=== PATIENT | female | born 1955 | race Caucasian/White ===

== ENCOUNTER → 2019-10-09 | Outpatient (CLI) | payer OTHER ==
[~2019-10-09] MED LIST: GLAUCOMA MED; THYROID MED
[2019-10-09 10:21] LABS: BASOPHILS ABSOLUTE AUTO 0.07 K/mm3 (0.00-0.23); BASOPHILS PERCENT AUTO 1 % (0-2); EOSINOPHILS ABSOLUTE AUTO 0.26 K/mm3 (0.00-0.68); EOSINOPHILS PERCENT AUTO 3 % (0-6); Hematocrit 40.9 % (33.0-51.0); Hemoglobin 13.8 g/dL (11.5-16.0); IMMATURE GRAN ABSOLUTE AUTO 0.04 K/mm3 (0.00-0.10); IMMATURE GRAN PERCENT AUTO 1 % (0-1); LYMPHOCYTES ABSOLUTE AUTO 2.43 K/mm3 (0.84-5.20); LYMPHOCYTES PERCENT AUTO 31 % (21-46); MONOCYTES ABSOLUTE AUTO 0.55 K/mm3 (0.16-1.47); MONOCYTES PERCENT AUTO 7 % (4-13); Mean Corpuscular HGB 30.9 pg (26.0-34.0); Mean Corpuscular HGB Conc 33.7 g/dL (31.5-36.5); Mean Corpuscular Volume 92 fL (80-100); Mean Platelet Volume 9.6 fL (9.1-12.4); NEUTROPHILS ABSOLUTE AUTO 4.61 K/mm3 (1.96-9.15); NEUTROPHILS PERCENT AUTO 58 % (41-73); Platelet Count 290 K/mm3 (150-400); RDW Coefficient Variation 13.1 % (11.7-14.2); RDW Standard Deviation 44.1 fL (35.1-46.3); Red Blood Cell Count 4.46 M/mm3 (3.80-5.20); White Blood Cell Count 7.96 K/mm3 (4.00-11.30)
[2019-10-09 10:47] LABS: Alanine Aminotransfer (ALT/SGP 31 U/L (12-78); Albumin, Blood 4.1 g/dL (3.4-5.0); Albumin/Globulin Ratio 1.2 (0.8-1.8); Alk Phos 113 U/L (40-126); Anion Gap 11 mmol/L (6-16); Aspartate Aminotrans (AST/SGOT 22 U/L (12-37); Bilirubin, Total 0.3 mg/dL (0.1-1.0); Blood Urea Nitrogen 13 mg/dL (8-24); Bun/Creatinine Ratio 13.3 (12.0-20.0); CO2, Blood 26 mmol/L (21-32); Calcium, Blood 8.2 mg/dL (8.5-10.1); Chloride, Blood 107 mmol/L (98-108); Creatinine, Blood 0.98 mg/dL (0.40-1.00); Globulin, Blood 3.3 g/dL (2.2-4.0); Glomerular Filtration Rate 57 (60-); Glucose, Blood 110 mg/dL (70-99); Sodium, Blood 144 mmol/L (136-145); Thyroid Stimulating Hormone 1.806 uIU/mL (0.360-4.800); Total Protein, Blood 7.4 g/dL (6.4-8.2)
[2019-10-09 10:48] LABS: Troponin I <0.017 ng/mL (0.000-0.040)
== END | disposition home or self-care (01) ==
PROVIDERS: Physician Assistant
DX: R06.09 Other forms of dyspnea (principal); R07.89 Other chest pain; E03.9 Hypothyroidism, unspecified; J40 Bronchitis, not specified as acute or chronic

== ENCOUNTER 2020-03-27 10:19 | Emergency (ER) | payer OTHER ==
[~2020-03-27] VITALS: Ht 160 cm; Wt 95.2 kg
== END 2020-03-27 15:45 | disposition home or self-care (01) ==
LOC: ER 10:19
DX: R05 Cough (principal); H91.92 Unspecified hearing loss, left ear
CPT/HCPCS: 99282

== ENCOUNTER 2022-03-18 07:12 | Day surgery (SDC) | payer OTHER ==
[~2022-03-18] VITALS: Ht 160 cm; Wt 76.7 kg
--- NOTE | 2022-03-18 07:25 | NUR ---
Ambulatory in Day Surgery History, Chart, Medications and Allergies reviewed before start of procedure.Patient confirms NPO status and agrees with scheduled surgery. Pre-Op teaching done. Pt verbalizes understanding. Patient States Post-Procedure ride home has been arranged.
[2022-03-18] MEDS ORDERED: ALBU90OI INH (07:38)
[2022-03-18] MEDS ORDERED: Prinivil10 MG PO (07:39)
[2022-03-18] MEDS ORDERED: TIZA4 PO (07:39)
[2022-03-18] MEDS ORDERED: LATA.005SO BOTHEYES (07:40)
[2022-03-18] MEDS ORDERED: ACYC400 PO (07:40)
[2022-03-18] MEDS ORDERED: ATOR10 PO (07:40)
[2022-03-18] MEDS ORDERED: MELO7.5 PO (07:40)
[2022-03-18] MEDS ORDERED: BUSP10 PO (07:41)
[2022-03-18] MEDS ORDERED: SERT100 PO (07:42)
[2022-03-18] MEDS ORDERED: EUTHYROX50 MCG PO (07:44)
[2022-03-18] MEDS ORDERED: METO25ER PO (07:49)
[2022-03-18] MEDS ORDERED: TRAZ150T57 PO (07:50)
[2022-03-18] MEDS ORDERED: OMEP20ER PO (07:50)
--- NOTE | 2022-03-18 08:07 | NUR ---
03/18/22 0807 Nina Byers HISTORY, CHART, MEDICATIONS AND ALLERGIES REVIEWED BEFORE START OF PROCEDURE. PATIENT CONFIRMS NPO STATUS AND AGREES WITH SCHEDULED PROCEDURE. 3-LEAD EKG REVIEWED WITH PHYSICIAN PRIOR TO START OF PROCEDURE. MONITOR INTACT WITH CONTINUOUS PULSE OXIMETRY,CAPNOGRAPHY, 3-LEAD EKG, INTERMITTENT BP. SUPPLEMENTAL O2 TO BE TITRATED THROUGHOUT PROCEDURE TO MAINTAIN O2 SATURATION ABOVE 90%. PATIENT DETERMINED TO BE ASA APPROPRIATE FOR PROPOFOL SEDATION PRIOR TO START OF PROCEDURE BY DR. ELLIS
--- NOTE | 2022-03-18 08:55 | NUR ---
Patient up to Ambulate independently. Gait steady. Discharge instructions reviewed with patient. Patient verbalizes understanding. Copy given to patient to take home. Discharged via wheelchair to private car for ride home.
== END 2022-03-18 23:14 | disposition home or self-care (01) ==
LOC: ORSCMMR 07:12 → ORD 08:00 → ORSCMMR 23:14
PROVIDERS: Internal Medicine Gastroenterology
PROC: 0DJD8ZZ Inspection of Lower Intestinal Tract, Via Natural or Artificial Opening Endoscopic (ICD-10-PCS; principal; 2022-03-18 08:00)
DX: R19.5 Other fecal abnormalities (principal); R10.2 Pelvic and perineal pain; K62.5 Hemorrhage of anus and rectum; K64.8 Other hemorrhoids; K57.30 Diverticulosis of large intestine without perforation or abscess without bleeding; I10 Essential (primary) hypertension; E78.00 Pure hypercholesterolemia, unspecified; H40.9 Unspecified glaucoma; F41.9 Anxiety disorder, unspecified; E03.9 Hypothyroidism, unspecified; K21.9 Gastro-esophageal reflux disease without esophagitis; E66.9 Obesity, unspecified; Z68.32 Body mass index [BMI] 32.0-32.9, adult; Z79.899 Other long term (current) drug therapy
CPT/HCPCS: J2250; J2704; J7120

== ENCOUNTER → 2023-04-29 | Outpatient (CLI) | payer OTHER ==
[~2023-04-29] MED LIST changes: +ACYC400 PO; +ALBU90OI INH; +ATOR10 PO; +BUSP10 PO; +EUTHYROX50 MCG PO; +LATA.005SO BOTHEYES; +MELO7.5 PO; +METO25ER PO; +OMEP20ER PO; +Prinivil10 MG PO; +SERT100 PO; +TIZA4 PO; +TRAZ150T57 PO
== END ==
LOC: LAB SHORT 13:11 → LAB 13:11
DX: T81.49XA Infection following a procedure, other surgical site, initial encounter (principal)
CPT/HCPCS: 87070; 87205

== ENCOUNTER → 2024-03-15 | Outpatient (CLI) | payer OTHER ==
[2024-03-15 14:17] LABS: Protein, Urine Quantitative 9.7 mg/dL (0.0-11.9)
[2024-03-15 14:23] LABS: Microalbumin, Urine Quant. <5.000 mg/L (0.000-20.000)
== END ==
LOC: LAB SHORT 11:31 → LAB 11:31
PROVIDERS: Internal Medicine Nephrology
DX: N18.30 Chronic kidney disease, stage 3 unspecified (principal); N25.81 Secondary hyperparathyroidism of renal origin; E55.9 Vitamin D deficiency, unspecified; E78.00 Pure hypercholesterolemia, unspecified; R76.9 Abnormal immunological finding in serum, unspecified; R94.5 Abnormal results of liver function studies; R94.6 Abnormal results of thyroid function studies; D51.8 Other vitamin B12 deficiency anemias; D52.8 Other folate deficiency anemias; D50.9 Iron deficiency anemia, unspecified
CPT/HCPCS: 81050; 82043; 82570; 84156

== ENCOUNTER → 2024-10-12 | Outpatient (CLI) | payer OTHER | LOC: LAB SHORT 08:45 → LAB 08:45 | DX: N39.0 Urinary tract infection, site not specified (principal) | CPT/HCPCS: 87077; 87086; 87186 ==

== ENCOUNTER 2024-11-16 05:50 | Day surgery (SDC) | payer OTHER ==
[~2024-11-16] VITALS: Ht 157.5 cm; Wt 77.5 kg
[2024-11-16] VITALS (13 sets, daily range): BP systolic 85–136; BP diastolic 52–80
[~2024-11-16 05:50] MED LIST changes: +ALLER-CLEAR PO; +GABA300 PO
[2024-11-16] MEDS ORDERED: Lactated Ringer's 1,000 ML IV SCH ×2 (06:20→10:05)
[2024-11-16] MEDS ORDERED: Chlorhexidine Mouth Care 15 ML UDC MT SCH (06:20)
[2024-11-16] MEDS ORDERED: Acetaminophen 500 MG Tab PO SCH ×2 (06:20→16:00)
[2024-11-16] MEDS ORDERED: CeFAZolin Sodium 2,000 MG in NS 100 ML IV SCH ×2 (06:20→15:45)
[2024-11-16] MEDS ORDERED: Ropivacaine 0.5% HCl/Pf 123.125 MG,EPINEPHrine HCL 0.25 MG,Ketorolac Tromethamine 15 MG... INFIL SCH (06:20)
[2024-11-16] MEDS ORDERED: OxyCODONE HCL 10 MG TABCR PO SCH (06:20)
[2024-11-16] MEDS ORDERED: FentaNYL Citrate 50 MCG/ML 2 ML Injection ONE (06:31)
[2024-11-16] MEDS ORDERED: propofoL 20 ML IV ONE ×3 (06:31→08:43)
[2024-11-16] MEDS ORDERED: Tranexamic Acid 100 ML IV SCH (06:35)
[2024-11-16] MEDS ORDERED: Midazolam HCl 1MG / ML 2ML Vial ONE (06:36)
[2024-11-16] MEDS ORDERED: VANCOCIN HCL250 MG PO (06:46)
--- NOTE | 2024-11-16 07:00 | NUR ---
AMBULATORY INTO [facility] UTILIZING CANE. PT REPORTS 12/02 RIGHT HIP PAIN. HISTORY AND ALLERGIES REVIEWED. LUNGS CLEAR. PT DENIES SOB. PT STATES THAT SHE HAS NOT USED HER RESCUE INHALER FOR "A COUPLE OF WEEKS." SATS 95% ON RA. NPO STATUS CONFIRMED. PT HAS BEEN ON VANCOMYCIN 250 MG PO BID SINCE 11/06/24. PT CANE AND BELONGINGS BELOW BED. PT GLASSES TO PACU.
[2024-11-16] MEDS ORDERED: Atropine Sulfate 0.1 MG/ML 10ML SYR IV PRN (08:15)
[2024-11-16] MEDS ORDERED: Albuterol 2.5 MG/3 ML VIAL INH PRN (08:15)
[2024-11-16] MEDS ORDERED: HYDROmorphone HCl/Pf 1MG SYR IV PRN ×3 (08:15→09:25)
[2024-11-16] MEDS ORDERED: ePHEDrine Sulfate 50 MG/ML 1ML Injection IV PRN (08:15)
[2024-11-16] MEDS ORDERED: Metoclopramide HCl 5MG / ML 2ML Vial IV PRN ×2 (08:15→09:30)
[2024-11-16] MEDS ORDERED: FentaNYL Citrate 50 MCG/ML 2 ML Injection IV PRN (08:15)
[2024-11-16] MEDS ORDERED: Ketorolac Tromethamine 15mg Vial IV PRN (08:20)
[2024-11-16] MEDS ORDERED: Labetalol HCL 5 MG/ML 4ML Injection (Single Dose) IV PRN (08:20)
[2024-11-16] MEDS ORDERED: Ondansetron HCl 2 MG / ML 2ML Vial IV PRN ×2 (08:25→09:30)
[2024-11-16] MEDS ORDERED: Promethazine HCl 25 MG Tab PO PRN (09:25)
[2024-11-16] MEDS ORDERED: Magnesium Hydroxide Conc 10 ML UDC PO PRN (09:30)
[2024-11-16] MEDS ORDERED: OxyCODONE HCL 5 MG TAB PO PRN ×2 (09:30→09:35)
[2024-11-16] MEDS ORDERED: Prochlorperazine Edisylate 10 mg Vial IV PRN (09:35)
[2024-11-16] MEDS ORDERED: Bisacodyl 10 MG Supp PR PRN (09:35)
[2024-11-16] MEDS ORDERED: DiphenhydrAMINE HCL 25 MG Cap PO PRN (09:35)
--- NOTE | 2024-11-16 09:52 | NUR ---
PT ARRIVED TO UNIT AT 0945. PT A/O X'S 4. LUNGS CLEAR, O2 SAT 98% ON RA UPON ARRIVAL. SYSTOLIC BP 88, PT ASYMPTOMATIC, 500 BOLUS GIVEN IN PACU FOR HYPOTENSION. ALL OTHER VSS UPON ARRIVAL. DRSSING TO R HIP C/D/I, PT HAS NO SENSATION OR MOVMT IN BLE, CAP REFILL LESS THAN 3 SEC W/STRONG PEDAL PULSE. PT GIVEN CLEAR LIQUIDS TO START, WILL ADVANCE TOLERATED. REPORT GIVEN TO PRIMARY RN.
--- NOTE | 2024-11-16 11:24 | NUR ---
ARRIVAL TO ROOM 214 @1000 DRESSING IS C/D/I. VITALS ARE STABLE ON RA 100%, DENIES PAIN, REPORTS NUMBNESS IN BILAT FEET. TXA IS DONE, TOLERATING PO INTAKE. CALL LIGHT IN REACH.
[2024-11-16] MEDS ORDERED: NS 250 ML IV PRN (11:50)
[2024-11-16] MEDS ORDERED: Ketorolac Tromethamine 15mg Vial IV SCH (12:00)
[2024-11-16] MEDS ORDERED: Vancomycin HCl 250 MG Cap PO SCH (13:00)
[2024-11-16] MEDS ORDERED: Gabapentin 300 MG Cap PO SCH (14:00)
[2024-11-16] MEDS ORDERED: BusPIRone HCl 10 MG Tab PO SCH (14:00)
[2024-11-16] MEDS ORDERED: ASPI81CH PO (14:34)
--- NOTE | 2024-11-16 17:27 | NUR ---
DISCHARGE PATIENT WORKED WITH THERAPY, VOIDING, TOLERATING PO INTAKE. ALL INSTRUCTIONS READ AND SIGNED, ICE MACHINE AND BELONGINGS PACKED UP. PATIENT IS DRESSED AND TAKEN OUT TO AWAITING CAR. VSS. IV TAKEN OUT INTACT.
[2024-11-16] MEDS ORDERED: Aspirin 81 MG Chew PO SCH (21:00)
[2024-11-16] MEDS ORDERED: Docusate Sodium 100 MG Cap PO SCH (21:00)
[2024-11-16] MEDS ORDERED: Atorvastatin 10 MG Tab PO SCH (21:00)
[2024-11-16] MEDS ORDERED: Latanoprost 0.005% Opth Soln 2.5 ML BOTHEYES SCH (21:00)
[2024-11-16] MEDS ORDERED: TraZODone HCl 100 MG Tab PO SCH (21:00)
[2024-11-17] MEDS ORDERED: Levothyroxine Sodium 0.05 MG Tab PO SCH (06:00)
[2024-11-17] MEDS ORDERED: Metoprolol Succinate 25 MG TABCR PO SCH (09:00)
[2024-11-17] MEDS ORDERED: Acyclovir 400 MG Tab PO SCH (09:00)
[2024-11-17] MEDS ORDERED: Sertraline HCl 100 MG Tab PO SCH (09:00)
[2024-11-17] MEDS ORDERED: Lisinopril 10 MG Tab PO SCH (09:00)
== END 2024-11-16 17:41 | disposition home or self-care (01) ==
LOC: ORSCMMR 05:50 → ORD 07:30 → ORSCMMR 09:42 → SURS 09:42 → ORSCMMR 17:41
PROVIDERS: Orthopaedic Surgery
PROC: 0SR90JA Replacement of Right Hip Joint with Synthetic Substitute, Uncemented, Open Approach (ICD-10-PCS; principal; 2024-11-16 07:30)
DX: M16.11 Unilateral primary osteoarthritis, right hip (principal); I10 Essential (primary) hypertension; E78.5 Hyperlipidemia, unspecified; I25.2 Old myocardial infarction; G47.33 Obstructive sleep apnea (adult) (pediatric); E03.9 Hypothyroidism, unspecified; E66.9 Obesity, unspecified; Z68.31 Body mass index [BMI] 31.0-31.9, adult; Z79.899 Other long term (current) drug therapy
CPT/HCPCS: 72170; 97110; 97116; 97161; 97530; A9270; C1713; C1776; J0171; J0690; J0735; J1885; J2250; J2704; J2795; J3010; J7120

== ENCOUNTER → 2024-12-10 | Outpatient (CLI) | payer OTHER ==
[~2024-12-10] MED LIST changes: +ASPI81CH PO; +VANCOCIN HCL250 MG PO
[2024-12-10 19:00] LABS: Campylobacter Sp Not Detected (NOT DETECT)
[2024-12-10 19:02] LABS: E. Coli O157 Not Detected (NOT DETECT); Enteroaggregative E. coli-EAEC Not Detected (NOT DETECT); Enteropathogenic E. coli-EPEC Not Detected (NOT DETECT); Enterotoxigenic E. coli-ETEC Not Detected (NOT DETECT); Salmonella Sp Not Detected (NOT DETECT); Shiga Toxin-prod E. coli-STEC Not Detected (NOT DETECT); Shigella/Enteroin E. coli-EIEC Not Detected (NOT DETECT); Vibrio Sp Not Detected (NOT DETECT)
== END ==
LOC: LAB 15:19 → LAB SHORT 15:19
PROVIDERS: Nurse Practitioner Family
DX: R19.7 Diarrhea, unspecified (principal)
CPT/HCPCS: 87324; 87507